=== PATIENT | female | born 1985 | race Caucasian/White ===

== ENCOUNTER 2018-01-14 19:46 | Emergency (ER) | payer OTHER ==
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
[2018-01-14 23:03] VITALS: BP 139/93
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
== END 2018-01-14 23:02 | disposition left against medical advice (07) ==
LOC: ED 19:46
DX: M54.9 Dorsalgia, unspecified (principal); R07.81 Pleurodynia; M41.9 Scoliosis, unspecified; M51.36 Other intervertebral disc degeneration, lumbar region; Z83.3 Family history of diabetes mellitus
CPT/HCPCS: 72070; 72100; 99282